=== PATIENT | male | born 1985 | race Two or more races ===

== ENCOUNTER 2020-12-13 20:54 | Emergency (ER) | payer OTHER ==
[2020-12-13 22:23] LABS: BASOPHIL 0.3 % (0-2); EOSINOPHIL 0.2 % (0-5); HCT 44.4 % (42.0-52.0); HGB 15.9 g/dl (13.2-18.0); LYMPHOCYTE 11.1 % (15-48); MCH 29.4 pg (25.0-31.0); MCHC 35.8 g/dL (32.0-36.0); MCV 82.1 fL (78.0-100.0); MPV 11.2 fL (6.0-9.5); NEUTROPHIL 83.1 % (41-80); NRBC 0; PLT 155 K/uL (150-400); RBC 5.41 M/uL (4.70-6.00); RDW 12.6 % (11.5-14.0); WBC 11.6 K/uL (4.0-10.5)
[2020-12-13 22:25] LABS: BILIRUBIN NEGATIVE (NEGATIVE); BLOOD 1+ Ery/uL (NEGATIVE); CLARITY CLEAR (CLEAR); COLOR YELLOW (YELLOW); GLUCOSE (U) NORMAL (NORMAL); LEUKOCYTES NEGATIVE Leu/uL (NEGATIVE); NITRITE NEGATIVE (NEGATIVE); PROTEIN 3+ mg/dL (NEGATIVE); SPECIFIC GRAVITY 1.025 (1.001-1.030); UROBILINOGEN 0.2 mg/dL (0.2-1.0)
[2020-12-13 22:31] LABS: SQUAMOUS EPITHELIAL CELLS RARE
[2020-12-13 22:36] LABS: ALBUMIN 3.7 g/dL (3.4-5.0); BILIRUBIN - TOTAL 0.7 mg/dL (0.2-1.0); CREATININE 0.69 mg/dL (0.67-1.17); GLOBULIN (CALCULATION) 5.1 g/dL; POTASSIUM 3.8 mmol/L (3.5-5.1); TOTAL PROTEIN 8.8 g/dL (6.4-8.2)
== END 2020-12-13 23:10 | disposition home or self-care (01) ==
LOC: FER 20:54
PROVIDERS: Emergency Medicine
DX: G44.209 Tension-type headache, unspecified, not intractable (principal); R10.9 Unspecified abdominal pain
CPT/HCPCS: 36415; 80053; 81001; 85025; J0780; J1885